=== PATIENT | female | born 1955 | race Caucasian/White ===

== ENCOUNTER 2018-01-05 13:26 | Day surgery (SDC) | payer BC ==
[2018-01-05] MEDS ORDERED: PROPOFOL 10 MG/ML VIAL IV ONE (13:27)
[2018-01-05] MEDS ORDERED: LIDOCAINE 2% MDV (20MG/ML) 20ML VIAL IV ONE (13:27)
--- NOTE | 2018-01-06 12:50 | Operative Note ---
DATE OF SURGERY: 01/05/2018 OPERATION: COLONOSCOPY with cold forceps polypectomy x2. PREOPERATIVE DIAGNOSIS: Colon polyps and followup. POSTOPERATIVE DIAGNOSES: 1. Colon polyps. 2. Sigmoid diverticulosis. PROCEDURE: After informed consent was obtained from the patient, she was placed in the left lateral decubitus position in the endoscopy suite, sedated and monitored by the department of anesthesia. Digital rectal examination was unremarkable. A well-lubricated [id number] colonoscope was inserted into the rectum and advanced to the cecum. Preparation quality was good. The cecum was unremarkable. The ascending colon revealed a diminutive polyp removed with a cold forceps. The remainder of the ascending colon, transverse colon, and descending colon were unremarkable. There were several scattered diverticula in the sigmoid colon. There was another diminutive polyp in the sigmoid colon which was removed with a cold forceps. The rectum was unremarkable in forward and in J-turn views. The endoscope was straightened, the rectal ampulla deflated, and the endoscope was removed. RECOMMENDATIONS: The patient should resume her medications and resume a high-fiber diet. I would suggest she undergo a repeat exam in 5 years pending tissue histology. As always, thank you for allowing me to participate in the healthcare of your patients. CC: Dr. Dimitris PAUL
== END 2018-01-05 14:56 | disposition home or self-care (01) ==
LOC: HOP 13:26
PROVIDERS: ATTEND Internal Medicine Gastroenterology
DX: Z12.11 Encounter for screening for malignant neoplasm of colon (principal); E78.00 Pure hypercholesterolemia, unspecified; K57.30 Diverticulosis of large intestine without perforation or abscess without bleeding